=== PATIENT | female | born 1945 | race Caucasian/White ===

== ENCOUNTER → 2017-03-06 | Outpatient (CLI) | payer BC | LOC: MC.RAD 13:54 | DX: Z12.31 Encounter for screening mammogram for malignant neoplasm of breast (principal) ==

== ENCOUNTER → 2019-05-05 | Outpatient (CLI) | payer MEDICARE, OTHER | LOC: MC.RAD 15:25 | DX: Z12.31 Encounter for screening mammogram for malignant neoplasm of breast (principal); R92.1 Mammographic calcification found on diagnostic imaging of breast ==

== ENCOUNTER → 2019-05-18 | Outpatient (CLI) | payer MEDICARE, OTHER | LOC: MC.RAD 12:57 | DX: R92.0 Mammographic microcalcification found on diagnostic imaging of breast (principal) ==

== ENCOUNTER → 2019-06-08 | Outpatient (CLI) | payer MEDICARE, OTHER | LOC: MC.RAD 08:16 | DX: R92.1 Mammographic calcification found on diagnostic imaging of breast (principal); Z98.82 Breast implant status ==

== ENCOUNTER → 2023-09-02 | Outpatient (CLI) | payer MEDICARE, OTHER ==
[~2023-09-02] MED LIST: ESTRING0.0075 MG/ VG; FLAGYL500 MG PO; LEVAQUIN 750MG750 M1 PO; MELATONIN1 MG PO; ZYRTEC5 MG PO
== END ==
LOC: MC.RAD 08:33
DX: Z12.31 Encounter for screening mammogram for malignant neoplasm of breast (principal)